=== PATIENT | female | born 1990 | race African-American/Black ===

== ENCOUNTER 2020-04-07 06:11 | Day surgery (SDC) | payer OTHER ==
[~2020-04-07] VITALS: Ht 170.2 cm; Wt 135.2 kg
[~2020-04-07 06:11] MED LIST: BIRTH CONTROL PO; DILTIAZEM ER120 M1 PO; DIUREX WATER P1 EACH PO; IRON PO; LORTAB 5 MG/5001 TA1 PO; MULTI VITAMIN1 EACH PO; ONGLYZA5 MG PO; SPIRONOLACTONE100 M1 PO
[2020-04-07 06:38] LABS: HEMATOCRIT 34.8 % (37.0-47.0); HEMOGLOBIN 11.1 gm/dL (12.0-15.0); MCH 25.8 pg (26.0-34.0); MCHC 31.9 g/dL (28.0-37.0); MCV 80.9 fL (80.0-100.0); RBC 4.3 mil/uL (4.20-5.00); RDW 14.8 % (10.5-14.5); WBC 7.4 thou/uL (4.0-11.0)
[2020-04-07 06:47] LABS: CALCIUM 9.2 mg/dL (8.5-10.1); CREATININE 0.8 mg/dL (0.6-1.0); POTASSIUM 3.9 mmol/L (3.5-5.1)
[2020-04-07 07:05] VITALS: BP 170/91
[2020-04-07 10:10] VITALS: BP 170/91
--- NOTE | 2020-04-07 22:21 | O ---
[address] [address] OPERATIVE REPORT Name: GAMAL HARP Room #: DEP [facility]..#: [id number] Admission: 04/07/20 Attend Phys: Ancelmo Carlson MD Discharge: 04/07/20 Date of : 89 Report #: [id number] THIS REPORT FOR: cc: AURA - No family physician/PCP FAM - No family physician/PCP Ancelmo Carlson MD ~ CC: [facility] physician/PCP Ancelmo Carlson DATE OF SERVICE: 04/07/2020 SERVICE: Orthopedics. FACILITY: [facility]. SURGEON: Ancelmo Carlson MD FLATWORK CATCHER: Rani Phelps NP INDICATION FOR FLATWORK CATCHER: Extremity positioning, suture management, assistance with repair. PREOPERATIVE DIAGNOSES: 1. Right hip pain. 2. Right hip labral tear. 3. Right hip impingement syndrome. 4. Morbid obesity. POSTOPERATIVE DIAGNOSES: 1. Right hip pain. 2. Right hip labral tear. 3. Right hip impingement syndrome. 4. Morbid obesity. PROCEDURES: 1. Right hip arthroscopic labral repair. 2. Right hip arthroscopic Cam osteochondroplasty. 3. Right hip arthroscopic subspine decompression. COMPLICATIONS: None. DRAINS: None. SPECIMENS: None. ANESTHESIA: General with regional. [address] [address] OPERATIVE REPORT Name: GAMAL HARP Room #: DEP [place] Vaishali#: [id number] Admission: 04/07/20 Attend Phys: Ancelmo Carlson MD Discharge: 04/07/20 Date of : 89 Report #: [id number] FINDINGS: 1. Labral tear with associated chondral wave sign treated with [place] CinchLock suture anchor x 2. 2. Moderate cam impingement treated with Cam osteoplasty. 3. Medium sized subspine impingement lesion, treated with decompression. HISTORY: The patient is a 30-year-old female who sustained a work-related injury a couple of years ago related to her right hip. She has been treated conservatively for an extended period of time and had failed conservative measures. She had a labral tear and the injury had rendered her to have symptomatic hip impingement. She initially had significant obesity that precluded the ability to safely perform the procedure and so she went on a weight loss program and achieved a reasonable weight loss level to have successful surgery. The risks, benefits, alternatives, and indication of surgery discussed with her in detail. Risks include but not limited to pain, bleeding, infection, injury to nerves or blood vessels, persistent pain despite surgical intervention, failure of any repairs, progression of preexisting chondral injury, stiffness, need for further surgery as well as complications related to anesthesia such as stroke, heart attack, pulmonary complications, thromboembolic disease and . Despite these risks, she wished to proceed. Due to the patient's obesity, the level of complexity of this case was increased. The patient has a BMI of 49 on the day of surgery. We arranged for some additional instrumentation in order to perform the procedure safely and effectively including a post-less distraction system in order to provide traction to the right leg without using a perineal post. In addition, we utilized a longer length disposable cannula and a more rigid arthroscopic cautery and wand in order to safely and effectively execute surgical plan. PROCEDURE IN DETAIL: After right lower extremity was correctly identified in the preoperative holding area as the operative extremity, the patient was taken to the operating room where general anesthesia was induced without complication. She was padded appropriately. Prophylactic antibiotics were administered at appropriate time. We placed her on the operating table and positioned accordingly using the [place] post-distraction system in order to prevent excessive soft tissue anteriorly and then you brought C-arm in and assessed the femoral head and neck junction. The Cam deformity with maximum alpha angle approximately 58 degrees was visualized and then we applied traction to the right leg successfully and then let traction down, prepped and draped the right hip in standard sterile fashion. Traction was then applied using the Trendelenburg position under fluoroscopy and then a standard anterolateral viewing portal was established as stated above. We utilized the [place] flow port disposable cannulas as this provided additional approximately 1-2 cm of working length in the cannula for the scope. [address] [address] OPERATIVE REPORT Name: GAMAL HARP Room #: [place] [facility] [place]#: [id number] Admission: 04/07/20 Attend Phys: Ancelmo Carlson MD Discharge: 04/07/20 Date of : 89 Report #: [id number] An anteromedial portal was then established under arthroscopic and fluoroscopic visualization and then a transverse capsulotomy was performed. There was some anterior capsular synovitis, which was treated with resection. The labrum overall appeared healthy as did the articular cartilage, but she did have a partial thickness tear and chondral wave sign noted anterolaterally that was adjacent to the subspine impingement lesion. When the capsule was reflected off the dorsal side of the labrum to allow access to the subspine region and then the bur was used to perform an appropriate subspine decompression in the extraarticular position. X-ray was used to confirm appropriate resection. We then used the bur to gently abrade the acetabular rim to freshen it for labral re-fixation and then performed labral repair with 2 [place] CinchLock suture anchors. The labrum was then probed and found to be stable at this point and secured. There was no residual chondral wave sign at this point. Traction was let down and the hip was flexed up. Attention was turned towards the peripheral compartment. The transverse capsulotomy was extended down the neck in a T fashion allowing access to the peripheral compartment. The bur was used to perform the Cam osteoplasty in typical fashion. I then removed the instruments, brought the C-arm in, assessed the Cam resection. There was some additional bone over the distal lateral shoulder and I then resected and placed the instruments back into the hip, completed the Cam resection and then took final x-rays and stapled those. The bony debris was lavaged out of the hip and then we closed the T-shaped capsulotomy with a total of four #2 Vicryl sutures in a typical fashion. At this point, the instruments were removed. The portal sites were closed and sterile dressings were applied. Note the added complexity due to the longer working length of the cannulas due to the soft tissue envelope, but overall there were no complications related to the procedure or to habitus. <ELECTRONICALLY SIGNED> By: Ancelmo Carlson MD 04/07/20 [id number] Ancelmo Carlson MD /nt
== END 2020-04-07 11:20 | disposition home or self-care (01) ==
LOC: OR 06:11 → TBA 06:11 → OR 10:37
PROVIDERS: Student in an Organized Health Care Education/Training Program; ATTEND Orthopaedic Surgery Sports Medicine
DX: M25.551 Pain in right hip (principal); S73.101A Unspecified sprain of right hip, initial encounter; M25.851 Other specified joint disorders, right hip; E66.01 Morbid (severe) obesity due to excess calories; D64.9 Anemia, unspecified; Z98.890 Other specified postprocedural states; Z11.59 Encounter for screening for other viral diseases; Z79.899 Other long term (current) drug therapy; Z68.42 Body mass index [BMI] 45.0-49.9, adult; Z90.49 Acquired absence of other specified parts of digestive tract; X58.XXXA Exposure to other specified factors, initial encounter; Y93.89 Activity, other specified; Y92.89 Other specified places as the place of occurrence of the external cause; Y99.8 Other external cause status
CPT/HCPCS: 50010; 50101; 50386; 51538; 52304; 52313; 56524; 56527; 57092; 57103; 62110; 62900; 64039; 64043; 70005